=== PATIENT | female | born 1955 | race Hispanic/Latino ===

== ENCOUNTER 2022-11-02 08:14 | Emergency (ER) | payer BC, MEDICARE ==
[~2022-11-02] VITALS: Ht 157.5 cm; Wt 68.9 kg
[2022-11-02] MEDS ORDERED: ORPHENADRINE CITRATE 30 MG/ML ML IM ONE (09:00)
[2022-11-02] MEDS ORDERED: MORPHINE 4 MG SYG IM ONE (09:00)
[2022-11-02] MEDS ORDERED: ONDANSETRON ODT 4MG TAB SL ONE (09:00)
[2022-11-02] MEDS ORDERED: LIDOCAINE 5% TOPICAL PATCH TP ONE (11:00)
[2022-11-02] MEDS ORDERED: KETOROLAC 60 MG VIAL (30MG/ML) IM ONE (11:00)
[2022-11-02] MEDS ORDERED: CYCL-309 PO (12:39)
[2022-11-02] MEDS ORDERED: IBUP-2070 PO (12:39)
[2022-11-02 12:58] VITALS: BP 103/71
== END 2022-11-02 12:57 | disposition home or self-care (01) ==
LOC: EDH 08:14
DX: S39.012A Strain of muscle, fascia and tendon of lower back, initial encounter (principal); I10 Essential (primary) hypertension; J45.909 Unspecified asthma, uncomplicated; Z88.5 Allergy status to narcotic agent; Z90.49 Acquired absence of other specified parts of digestive tract; W01.0XXA Fall on same level from slipping, tripping and stumbling without subsequent striking against object, initial encounter; Y93.89 Activity, other specified; Y92.89 Other specified places as the place of occurrence of the external cause; Y99.8 Other external cause status
CPT/HCPCS: 99284; 72131; 72170; 96372 ×2; J2270; J1885